=== PATIENT | male | born 1955 | race Caucasian/White ===

== ENCOUNTER 2018-02-07 12:57 | Emergency (ER) | payer OTHER ==
[~2018-02-07] VITALS: Ht 182.9 cm; Wt 99.8 kg
[~2018-02-07 12:57] MED LIST: ABILIFY 2MG2 MG PO; ABILIFY2 MG PO; CLINDAMYCIN300 MG PO; CLONAZEPAM2 M2 PO; COLACE100 M1 PO; ESCITALOPRAM OX20 MG PO; ESCITALOPRAM20 MG PO; FLOMAX0.4 M1 PO; GABAPENTIN300 MG PO; KEFLEX500 M1 PO; KLONOPIN 1MG TAB1 MG PO; MORPHINE SULFAT15 M2 PO; MOTRIN800 MG PO; NEURONTIN300 M1 PO; OMEPRAZOLE D/R20 MG PO; OMEPRAZOLE40 M1 PO; PERCOCET 5-3251 EACH PO; PRAZOSIN HCL1 MG PO; REMERON15 M2 PO; REMERON30 MG PO; RW; ULTRACET 325 MG1 TAB PO; VIBRAMYCIN 100100 MG PO; WARFARIN SODIUM5 M1 PO
[2018-02-07 13:00] VITALS: BP 146/91
--- NOTE | 2018-02-07 13:07 | ED MVC/FALL/TRAUMA COMPLAINT ---
History of Present Illness General Chief Complaint: Fall Stated Complaint: BACK PAIN S/P FALL Source: patient, old records Exam Limitations: no limitations Vital Signs & Intake/Output Vital Signs & Intake/Output Vital Signs Date Time Temp Pulse Resp B/P B/P Pulse O2 O2 Flow FiO2 Mean Ox Delivery Rate 02/07 1300 98.0 71 16 146/91 97 Room Air Allergies Coded Allergies: Penicillins (RASH 08/20/16) Reconcile Medications Aripiprazole (Abilify) 2 MG TABLET 1 TAB PO DAILY MED RESISTANT DEPRESSION ( Reported) Cyclobenzaprine HCl 5 MG TABLET 1 TAB PO TIDPRN PRN pain Escitalopram Oxalate 20 MG TABLET 1.5 TAB PO DAILY ANXIETY/DEPRESSION ( Reported) Gabapentin 600 MG TABLET 1 TAB PO BID MENTAL HEALTH (Reported) Ibuprofen 800 MG TABLET 1 TAB PO TID PRN PAIN (Reported) Mirtazapine 15 MG TABLET 1 TAB PO QPM SLEEP (Reported) Omeprazole 40 MG CAPSULE.DR 1 CAP PO DAILY "BLEEDING ULCERS" (Reported) Risperidone 0.5 MG TABLET 1 TAB PO QPM MENTAL HEALTH (Reported) Triage Note: C/O R SIDED RIB PAIN, WITH SOB SINCE YESTERDAY, S/P FALL AGAINST SIDE OF TUB YESTERDAY. Triage Nurses Notes Reviewed? yes Onset: Abrupt Duration: day(s): (2), constant Timing: recent history Severity: moderate Severity Numbers: 6 Injuries/Fall Location: chest Method of Injury: fall Loss of Consciousness: no loss of consciousness Modifying Factors: Worsens With: breathing, palpation. Associated Symptoms: denies HPI: 62-year-old male presents to ER for evaluation complaining of right-sided chest wall pain status post mechanical fall when he slipped in the tub hitting his chest against the lip of the tub. He did not hit his head there is no loss of consciousness. Denies any neck or back pain no arm or leg injury. There is no prodromal dizziness lightheadedness prior to the fall. Past History Travel History Traveled to [place] past 21 day No Medical History Any Pertinent Medical History? see below for history Neurological: NONE EENT: SINUSITIS/SX Cardiovascular: INTERMITTENT L BUNDLE BRANCH BLOCK Respiratory: HX SARCOIDOSIS L LUNG Gastrointestinal: ABDOMINAL HERNIA Hepatic: hepatitis C Renal: ENLARGED PROSTATE Musculoskeletal: osteoarthritis, L KNEE TORN LIGAMENT DEGENERATIVE DISK DISEASE Psychiatric: alcohol dependence, anxiety, depression, substance abuse, RECOVERING ALCOHOLIC HX OF SUBSTANCE ABUSE Endocrine: NONE Blood Disorders: NONE Cancer(s): NONE [employer] SALES [employer]/Reproductive: NONE History of MRSA: Yes History of VRE: Yes History of CDIFF: No Surgical History Surgical History: knee replacement (left), spinal fusion, GASTRIC BYPASS L KNEE TENDON REPAIR CARPAL TUNNEL TONSILLECTOMY PYONDAL CYST ABDOMINAL HERNIA REPAIR SINUS SX tonsillectomy 1659 ,cyst removal 1980,biopsy 1982 carpal tunnel 1998 left knee repair 2000 Psychosocial History Who do you live with Patient/Self Services at Home None What is your primary language Divehi Tobacco Use: Never used ETOH Use: denies use Family History Family History, If Any: FATHER (father had colorectal cancer and at age 75). MOTHER (mother had colorectal cancer and at age 46). Hx Contributory? No Review of Systems Review of Systems Constitutional: Reports: see HPI. Comments Review of systems: See HPI, All other systems negative. Constitutional, no chills no fever HEENT: no sore throat no congestion Cardiovascular: No chest pain , no palpitation Skin: no rashes, no change in skin Respiratory: No dyspnea no cough GI: No nausea no vomiting Muscle skeletal: No joint pain, no back pain, no neck pain, Neurologic: , no headache Heme/endocrine: No bruising Physical Exam Physical Exam General Appearance: well developed/nourished, no apparent distress, alert Comments: Well-developed well-nourished person in no acute distress HEENT: Normal EENT exam; PERRL, EOMI, HEAD is atraumatic. moist mucous membranes. Neck: Supple, NONTENDER normal range of motion without pain or tenderness Back: atraumatic, Nontender, no CVA tenderness. Full range of motion Cardiovascular: Regular rate and rhythms no murmurs rubs or gallops, normal JVP Respiratory: right axilla/Chest tender, no ecchymosis.There were no bony deformities, no asymmetry. No respiratory distress. Patient speaking in full complete sentences. Breath sounds clear to auscultation bilaterally: NO W/R/R Abdomen: Soft, nontender nondistended, no appreciable organomegaly. Normal bowel sounds. No rebound/guarding Extremity: No edema, full range of motion of extremities, 5 out of 5 strength noted to bilateral upper and lower extremities Neuro: Alert oriented x3, motor sensory normal, There were no obvious focal neurologic abnormalities. Skin: No appreciable rash on exposed skin, skin is warm and dry. Psych: Mood and affect is normal, memory and judgment is normal. Core Measures ACS in differential dx? No CVA/TIA Diagnosis No Sepsis Present: No Sepsis Focused Exam Completed? No Progress Differential Diagnosis: abd injury, C/T/L spine injury, pnemothorax, spinal cord injury Plan of Care: Orders Procedure Date/time Status XRY-RIBS UNILATERAL-RIGHT 02/07 1303 Active I discussed with the patient at length all of their results. I had an extensive conversation regarding need for close follow up with their primary care physician this week as well as return precautions. I answered all of their questions, they feel comfortable with the plan and follow-up care. I discussed with the patient/family the medications that they will receive. I gave them signs and symptoms that could indicate an adverse reaction. I have advised them to limit their activities until they can see how they respond to the medication. Diagnostic Imaging: Viewed by Me: Radiology Read. Discussed w/RAD: Radiology Read. Radiology Impression: PATIENT: VALENTINA WONG PRESENT AGE: 62 PATIENT ACCOUNT NO: [id number] : 56 LOCATION: [facility] ORDERING PHYSICIAN: Lon LEMOS SERVICE DATE: 02/07/18 EXAM TYPE: RAD - XRY- RIBS UNILATERAL-RIGHT EXAMINATION: XR RIBS, RIGHT CLINICAL INFORMATION: Fall in tub. Pain. Assess for rib fracture. COMPARISON: None. TECHNIQUE: Frontal view of the chest and 3 views of the right ribs were obtained. FINDINGS: No displaced rib fracture demonstrated. The lungs are well expanded with minimal left basilar subsegmental atelectasis. No evidence of pneumothorax or hemothorax. No mediastinal widening. Surgical clips over the left mediastinum demonstrated. Surgical tacks over the right abdomen. IMPRESSION: No discrete/displaced rib fracture demonstrated. DICTATED BY: Catracho Carey MD DATE/TIME DICTATED:1405 ACTIVITY THERAPIST:CHRISTY DATE/TIME TRANSCRIBED:02/07/181405 CONFIDENTIAL, DO NOT COPY WITHOUT APPROPRIATE AUTHORIZATION. <Electronically signed in Other Vendor System> SIGNED BY: Catracho Carey MD 02/07/18 1418 Departure Departure Time of Disposition: 1425 Disposition: HOME OR SELF CARE Condition: Stable Clinical Impression Primary Impression: Chest wall muscle strain Referrals: Lizbeth Michel MD Additional Instructions: rest, ice, tylenol or motrin for pain. Flexeril as directed this is a muscle relaxer may make you drowsy. Follow-up with your primary care physician this week return with any concerns. Departure Forms: Customer Survey General Discharge Information Prescriptions: Current Visit Scripts Cyclobenzaprine HCl 1 TAB PO TIDPRN PRN pain #12 TAB
[2018-02-07] MEDS ORDERED: GABAPENTIN600 M1 PO (14:14)
[2018-02-07] MEDS ORDERED: MIRTAZAPINE15 M2 PO (14:14)
[2018-02-07] MEDS ORDERED: RISPERIDONE0.5 M1 PO (14:14)
[2018-02-07] MEDS ORDERED: IBUPROFEN800 M1 PO (14:16)
--- NOTE | 2018-02-07 14:18 | RADIOLOGY REPORT ---
EXAMINATION: XR RIBS, RIGHT CLINICAL INFORMATION: Fall in tub. Pain. Assess for rib fracture. COMPARISON: None. TECHNIQUE: Frontal view of the chest and 3 views of the right ribs were obtained. FINDINGS: No displaced rib fracture demonstrated. The lungs are well expanded with minimal left basilar subsegmental atelectasis. No evidence of pneumothorax or hemothorax. No mediastinal widening. Surgical clips over the left mediastinum demonstrated. Surgical tacks over the right abdomen. IMPRESSION: No discrete/displaced rib fracture demonstrated.
[2018-02-07] MEDS ORDERED: CYCLOBENZAPRINE5 M2 PO (14:26)
[2018-02-10] MEDS ORDERED: PERCOCET 5-3251 EACH PO (10:41)
== END 2018-02-07 14:37 ==
LOC: ERH 12:57
DX: S29.011A Strain of muscle and tendon of front wall of thorax, initial encounter (principal); W18.2XXA Fall in (into) shower or empty bathtub, initial encounter; Y92.002 Bathroom of unspecified non-institutional (private) residence as the place of occurrence of the external cause; Y93.E1 Activity, personal bathing and showering
CPT/HCPCS: 71100-RT